=== PATIENT | male | born 1980 | race Native Hawaiian/Other Pacific Islander ===

== ENCOUNTER 2021-03-24 13:00 | Outpatient (CLI) | payer OTHER | END 2021-03-24 23:13 | disposition home or self-care (01) | LOC: RAD 13:00 | PROVIDERS: ATTEND Nurse Practitioner Family | DX: M25.521 Pain in right elbow (principal) ==

== ENCOUNTER 2021-04-05 15:02 | Outpatient (CLI) | payer OTHER | END 2021-04-05 19:16 | disposition home or self-care (01) | LOC: CT 15:02 | PROVIDERS: ATTEND Orthopaedic Surgery | DX: M25.521 Pain in right elbow (principal); S52.121A Displaced fracture of head of right radius, initial encounter for closed fracture ==